=== PATIENT | male | born 1955 | race Caucasian/White ===

== ENCOUNTER 2016-10-25 10:52 | Emergency (ER) | payer BC ==
[2016-10-25 11:22] VITALS: BP 116/63
--- NOTE | 2016-10-25 11:49 | UC ---
Hip/Pelvis Pain - HPI Summary HPI Summary: This is a 61 yo obese gentleman with DM and HTN who presents with c/o R hip pain for the last 2 d. Denies recent trauma or acute injury. He reports a remote R hip injury, but that was several years ago. The pain is in the lateral hip and occasionally radiates in to his groin. He has been working on weight loss and reports a recent 50# loss. Denies fever or back pain. No other associated complaints. - History Of Current Complaint Chief Complaint: UCLowerExtremity Stated Complaint: RIGHT HIP/GROIN PAIN - Allergies/Home Medications Allergies/Adverse Reactions: Allergies Allergy/AdvReac Type Severity Reaction Status Date / Time No Known Allergies Allergy Verified 10/25/16 11:09 Home Medications: Home Medications Cyclobenzaprine TAB* [Flexeril 10 MG TAB*] 10 mg PO ONCE PRN 10/25/16 [History Confirmed 10/25/16] Fluticasone NASAL SPRAY 50MCG* [Flonase NASAL SPRAY 50MCG*] 2 spray BOTH NARES DAILY PRN 10/25/16 [History Confirmed 10/25/16] PMH/Surg Hx/FS Hx/Imm Hx Endocrine History: Diabetes Cardiovascular History: Hypertension - Surgical History Surgical History: Yes Surgery Procedure, Year, and Place: MED DELIVERED VIA CATHETER TO BREAK UP CLOT. CYST REMOVED FROM BACK. sinus - Family History Known Family History: Positive: Other - arthritis, Alzheimer's in mother - Social History Alcohol Use: Rare Substance Use Type: None Smoking Status (MU): Never Smoked Tobacco Have You Smoked in the Last Year: No Household Exposure Type: Cigarettes - Immunization History Most Recent Influenza Vaccination: Not the Season Review of Systems Constitutional: Negative Skin: Negative Eyes: Negative ENT: Negative Respiratory: Negative Cardiovascular: Negative Gastrointestinal: Negative Genitourinary: Negative Motor: Decreased ROM Neurovascular: Negative Musculoskeletal: Arthralgia, Decreased ROM Neurological: Negative Psychological: Negative All Other Systems Reviewed And Are Negative: Yes Physical Exam Triage Information Reviewed: Yes Appearance: Well-Appearing Vital Signs: Initial Vital Signs Temp 98.1 F 10/25/16 11:12 Pulse 59 10/25/16 11:12 Resp 20 10/25/16 11:12 BP 116/63 10/25/16 11:12 Pulse Ox 100 10/25/16 11:12 Vital Signs Reviewed: Yes Neck: Positive: Supple, Nontender, No Lymphadenopathy Respiratory: Positive: Chest non-tender, Normal breath sounds. Negative: Crackles, Rhonchi, Wheezing Cardiovascular: Positive: RRR, No Murmur Abdomen Description: Positive: Nontender Musculoskeletal: Positive: Other: - TTP over R GT and some TTP over R ITB. Pain increased with external rotation and hip flexion Skin Exam: Normal Skin: Negative: rashes Hip Injury Course/Dx - Course Course Of Treatment: This is a 61 yo male with HTN, DM and obesity who presented with c/o R hip pain. Exam c/w R GT bursitis. Due to comorbities, do not recommend NSAIDs. Recommend APAP, ice and light stretching exercises. Also suggest f/u with his orthopedist to consider bursa steroid injection. - Differential Dx/Diagnosis Differential Diagnosis/HQI/PQRI: Arthritis, Bursitis, Fracture Provider Diagnoses: 1. R hip bursitis Discharge - Discharge Plan Condition: Stable Disposition: HOME Patient Education Materials: Hip Bursitis (ED) Referrals: Dick Ortez PA [Primary Care Provider] - If Needed Additional Instructions: Instructions: 1. Use tylenol and ice to control the pain 2. Start some light hip stretches 3. Follow up with your orthopedic doctor to consider injection in to the hip bursa, PT may also be necessary if the pain continues
== END 2016-10-25 11:48 | disposition home or self-care (01) ==
LOC: UCCORT 10:52
DX: M70.71 Other bursitis of hip, right hip (principal); Y93.9 Activity, unspecified; E11.9 Type 2 diabetes mellitus without complications; I10 Essential (primary) hypertension; Z77.22 Contact with and (suspected) exposure to environmental tobacco smoke (acute) (chronic)
CPT/HCPCS: 99212; G0463

== ENCOUNTER 2017-08-07 17:50 | Emergency (ER) | payer MEDICARE ==
--- OUTSIDE RECORDS SUMMARY | 2017-08-07 19:16 | XMS REPORT ---
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 Crewmember Unavailable José Manuel Ortez PA Primary Care Physician Unavailable Payers Type Date Identification Numbers Payment Provider Subscriber Commercial Effective: Policy Number: BS [employer] Clarence Salgado 2016 [id number] PayID: [id number] [address] [address] [place] [address] Health Maintenance Expires: Policy Number: Chavo Lopez SOPHIA [facility] (O) 03/05/2016 [id number] Naomi PayID: [id number] [address] [place] [address] Problems Date Description Provider Status Onset: 07/25/2011 Difficulty breathing Alison Choi PA Active Onset: 07/25/2011 Disturbance in sleep behavior Alison Choi PA Active Onset: 07/25/2011 Deviated nasal septum Alison Choi PA Active Family History Date Family Member(s) Problem(s) Comments General Diabetes Social History Type Date Description Comments Marital Status Single 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 every day Gabapentin 00/ Active Capsules 300mg 1 by mouth Unknown 0000 three times a day Glimepiride / Active Tablets 4mg Unknown 0000 Lisinopril 00/00/ Active Tablets 20mg 1 by mouth Unknown 0000 every day Metformin HCL 00/00/ Active Tablets ER 750mg 1 by mouth Unknown ER 0000 24HR every day Simvastatin 0000/ Active Tablets 10mg 1 by mouth Unknown 0000 every day Xarelto 0000/ Active Tablets 20mg 1 by mouth Unknown 0000 every day Percocet 03/24/ Hx Tablets 5-325mg 20tabs 1-2 by Jean Paul, 2017 - mouth four Chet, 06/28/ times a M.D. 2016 day as needed for pain Amoxicillin 02/15/ Hx Tablets 875mg 20tabs twice a Jean Paul, 2015 - day 10 Chet, 03/30/ days M.D. 2016 Augmentin 01/11/ Hx Tablets 875-125mg 14tabs twice a Jean Paul, 2015 - day 1 week Chet, 02/14/ M.D. 2015 Prednisone 01/11/ Hx Tablets 5mg 5tabs 1 by mouth Jean Paul, 2015 - every day Chet, 02/14/ M.D. 2015 Metformin HCL / Hx Tablets 500mg 180tab 1 po bid Unknown 0000 - s 2015 Lisinopril/Hy / Hx Tablets 20-25mg Daily Unknown drochlorothia 0000 - zide 2015 Simvastatin / Hx Tablets 10mg Daily Unknown 0000 - 2015 Aspirin / Hx Tablets 81mg qday Unknown 0000 - 2015 Lyrica / Hx Capsules 1 by mouth Unknown 0000 - twice 12/15/ 2015 Vital Signs Date Vital Result Comment 07/24/2017 Weight 398.00 lb Height 71.5 inches 5'11.50" BMI (Body Mass Index) 54.7 kg/m2 BP Systolic 117 mmHg BP Diastolic 79 mmHg Heart Rate 58 /min O2 % BldC Oximetry 97 % Body Temperature 96.8 F Gap Score 3 Pain Level 0 06/29/2016 Weight 396.00 lb Height 71.5 inches 5'11.50" BMI (Body Mass Index) 54.5 kg/m2 BP Systolic 124 mmHg BP Diastolic 77 mmHg Heart Rate 61 /min O2 % BldC Oximetry 97 % Body Temperature 97.4 F Pain Level 0 03/31/2016 Weight 391.00 lb Height 71.5 inches 5'11.50" BMI (Body Mass Index) 53.8 kg/m2 BP Systolic 134 mmHg BP Diastolic 80 mmHg Heart Rate 81 /min O2 % BldC Oximetry 97 % Body Temperature 97.8 F 02/16/2016 Weight 400.00 lb Height 71.5 inches 5'11.50" BMI (Body Mass Index) 55.0 kg/m2 BP Systolic 136 mmHg BP Diastolic 84 mmHg Heart Rate 81 /min O2 % BldC Oximetry 97 % Body Temperature 98.1 F 01/12/2016 Weight 395.00 lb Height 71.5 inches 5'11.50" BMI (Body Mass Index) 54.3 kg/m2 Heart Rate 79 /min O2 % BldC Oximetry 97 % Body Temperature 96.4 F 12/17/2015 Weight 394.00 lb Height 71.5 inches 5'11.50" BMI (Body Mass Index) 54.2 kg/m2 BP Systolic 132 mmHg BP Diastolic 72 mmHg Heart Rate 59 /min O2 % BldC Oximetry 98 % Body Temperature 97.4 F Pain Level 0 09/16/2014 Weight 420.38 lb Height 71.5 inches 5'11.50" BMI (Body Mass Index) 57.8 kg/m2 BP Systolic 120 mmHg BP Diastolic 80 mmHg Heart Rate 70 /min O2 % BldC Oximetry 97 % Body Temperature 98.2 F Gap Score 0 08/30/2011 Weight 398.00 lb Height 71.5 inches 5'11.50" BMI (Body Mass Index) 54.7 kg/m2 BP Systolic 138 mmHg BP Diastolic 84 mmHg Heart Rate 75 /min O2 % BldC Oximetry 97 % Body Temperature 97.9 F 07/25/2011 Weight 390.00 lb Height 71.5 inches 5'11.50" BMI (Body Mass Index) 53.6 kg/m2 BP Systolic 144 mmHg BP Diastolic 90 mmHg Heart Rate 68 /min O2 % BldC Oximetry 99 % Body Temperature 98.2 F Results Test Date Test Result H/L Range Note Laboratory test finding 03/24/2016 Glucose,Bedside 157 mg/dL High 70-110 1 Laboratory test finding 02/23/2016 PTT-LA Mix 48.9 sec 0.0-40.6 2 DRVVT Mix 54.1 sec 0.0-44.0 2 DRVVT Confirm 1.2 ratio 0.8-1.2 2 Hexagonal Phase Phospholipid 7 sec 0-11 2 Lupus Anticoagulant Reflex 02/23/2016 PTT-LA 54.1 sec 0.0-40.6 2 DRVVT 73.9 sec High 0.0-44.0 2 Note: Comment: . 2, 3 Laboratory test 02/23/2016 Homocyst(E)Ine, 11.0 umol/L 0.0-15.0 2, 4 finding Plasma Anticardiolipin AB 02/23/2016 Anticardiolipin Igg 21 GPLU/mL High 0-14 2 , 5 Iga/Igg/Igm Anticardiolipin Igm, Quant < 9 MPLU/mL 0-12 2, 6 Anticardiolipin Iga < 9 APLU/mL 0-11 2, 7 CBS W/Automated Diff 02/23/2016 White Blood Count 6.7 K/uL 3.4-10.5 2 Red Blood Count 4.71 M/uL 4.20-5.80 2 Hemoglobin 14.5 gm/dL 12.8-17.0 2 Hematocrit 43.9 % 38.0-48.0 2 Mean Cell Volume 93.2 fl 80.0-96.0 2 Mean Corpuscular HGB 30.8 pg 27.0-33.0 2 Mean Corpuscular HGB Conc 33.0 g/dL 31.7-36.0 2 Platelet Count 206 K/uL 150-400 2 Red Cell Distri Width SD 45.7 fl 36-51 2 Red Cell Distri Width %CV 13.8 % 11.6-15.8 2 Mean Platelet Volume 10.7 fL High 6.6-10.6 2 Neut% 57.0 % 33.0-73.0 2 Lymph % 30.6 % 17.0-56.0 2 [place] % 9.7 % 0.0-10.0 2 Eo% 1.8 % 0.0-5.0 2 Bas% 0.9 % 0.1-1.0 2 Neut# 3.80 K/uL 1.8-7.0 2 Lymph # 2.04 K/uL 1.8-7.0 2 [place] # 0.65 K/uL 0.0-0.8 2 Eos # 0.12 K/uL 0.0-0.5 2 Baso # 0.06 K/uL Low 0.1-0.2 2 Protime 02/23/2016 Protime 20.9 seconds High 12.0-14.4 2 Inr 1.9 High 0.9-1.1 2, 8 Laboratory test finding 02/23/2016 Act Partial Thrombo 58.7 seconds High 23.4-35.0 2 Time Comprehensive Metabolic 02/23/2016 Glucose 151 mg/dL High 74-106 2 Panel BUN 13 mg/dL 7-18 2 Creatinine 1.2 mg/dL 0.6-1.3 2 Glom Filtration Rate, Estimate >60 mL/min >60 2 If >60 mL/min >60 2, 9 BUN/Creat 10.8 ratio 2 Sodium 139 mmol/L 136-145 2 Potassium 4.2 mmol/L 3.5-5.1 2 Chloride 105 mmol/L 98-107 2 Carbon Dioxide 29 mmol/L 21-32 2 Anion Gap 5 mEq/L Low 8-16 2 Calcium 8.9 mg/dL 8.5-10.1 2 Total Protein 7.5 g/dL 6.4-8.2 2 Albumin 3.4 g/dL 3.4-5.0 2 Globulin 4.1 g/dL 1.9-4.3 2 Alb/Glob 0.8 ratio 2 Bilirubin,Total 0.6 mg/dL 0.2-1.0 2 Sgot/Ast 43 U/L High 15-37 2 SGPT/Alt 56 U/L 12-78 2 Alkaline Phosphatase 52 U/L 45-117 2 LDL Cholesterol Profile 02/23/2016 Cholesterol 117 mg/dL <200 2, 10 Triglycerides 171 mg/dL High <150 2, 11 HDL Cholesterol 37 mg/dL Low >40 2, 12 LDL-Cholesterol 46 mg/dL < 100 2, 13 Glycohemoglobin A1c 02/23/2016 Glycohemoglobin (A1c) 6.9 % High 4.2-6.3 2 , 14 eAG 151 mg/dL 2 1 98402,79527,11801,60223,77630,16123 2 I26.99 E72.12 D68.62 3 Results are consistent with the presence of a lupus anticoagulant. NOTE: Only persistent lupus anticoagulants are thought to be of clinical significance. For this reason, repeat testing in 12 or more weeks after an initial positive result should be considered to confirm or refute the presence of a lupus anticoagulant, depending on clinical presentation. Performed at: [facility] [id number] [place], [place] [id number] Utility Sales And Service Manager: Romaine Limon MD, Phone: [phone] Performed at: [address] [id number] Utility Sales And Service Manager: Dayana Ahn MD, Phone: [phone] Negative: <15 Indeterminate: 15 - 20 Low-Med Positive: >20 - 80 High Positive: >80 6 Negative: <13 Indeterminate: 13 - 20 Low-Med Positive: >20 - 80 High Positive: >80 7 Negative: <12 Indeterminate: 12 - 20 Low-Med Positive: >20 - 80 High Positive: >80 Performed at: [address] [id number] Utility Sales And Service Manager: Dayana Ahn MD, Phone: [phone] THERAPEUTIC INR RANGE: 2.0 - 3.0 DVT, Pulmonary embolus, prophylaxis against venous thrombosis or systemic embolization in high risk patients. 2.5 - 3.5 Mechanical heart valves 9 Note: Persistent reduction for 3 months or more in an eGFR <60 mL/min/1.73 m2 defines CKD. Patients with eGFR values >/=60 mL/min/1.73 m2 may also have CKD if evidence of persistent proteinuria is present. The original MDRD equation for estimated GFR is not valid for patients less than 18 years of age. Additional information may be found at www.kdoqi.org. 10 Reference Guidelines*: Desirable: ........... < 200 mg/dL Borderline High: ..... 200-239 mg/dL High: ................ >=240 mg/dL * The National Cholesterol Education Program (NCEP) 11 Reference Guidelines*: Normal: ............. < 150 mg/dL Borderline High: .... 150-199 mg/dL High: ............... 200-499 mg/dL Very High: .......... > 500 mg/dL * Source: National Cholesterol Education Program (NCEP) 12 Reference Guidelines*: Low HDL: ..... < 40 mg/dL Normal: ..... 40-60 mg/dL Desirable: ... > 60 mg/dL *The National Cholesterol Education Program(NCEP) 13 Reference Guidelines*: Optimal:........... <100 mg/dL Near Optimal....... 100-129 mg/dL Borderline High.... 130-159 mg/dL High............... 160-189 mg/dL Very High.......... >=190 mg/dL * Source: National Cholesterol Education Program (NCEP) 14 Elevated levels of HbA1c suggest the need for more aggressive treatment of glycemia. The [place] [employer] recommends that a primary goal of therapy should be a HbA1c of <7% and that physicians should re-evaluate the treatment regimen in patients with HbA1c values consistently >8%. Procedures Date CPT Code Description Status 06/29/2016 28147 Nasal Endoscopy, Diag. Completed 03/24/2016 95059 Stereotactic Computer-Assisted, Cranial, Extradural Completed 03/24/2016 91899 Nasal/Sinus Endoscopy Surg/Sphen. Completed 03/24/2016 72982 Nasal/Sinus Endosc.W.Explor. Completed 03/24/2016 27087 Nasal/Sinus Endosc.W.Eth.Rem Tiss Completed 03/24/2016 03921 Nasal/Sinus Endosc.Surg.W.Ethmoid Completed 03/24/2016 97681 Septoplasty Completed 03/24/2016 47497 Exc.Turbinate/Partial Or Complete Completed 02/16/2016 12090 Nasal Endoscopy, Diag. Completed 12/17/2015 10667 Nasal Endoscopy, Diag. Completed 09/18/2011 38231 Sleep Stage 4 Or More Cpap Titra Completed 08/07/2011 63289 Sleep Staging 4Or More Para Completed 07/25/2011 35042 Fiberoptic Laryngoscopy,Diag. Completed Encounters Type Date Location Provider CPT E/M Dx Office Visit 06/29/2016 11:00a Main Office Chet Reaves M.D. 43160 J31.0 G47.33 E66.9 Office Visit 02/16/2016 3:15p Main Office Chet Reaves M.D. 01364 G47.33 J32.9 J34.2 J34.3 Office Visit 01/12/2016 10:15a Main Office Chet Reaves M.D. 98424 G47.33 J32.9 E66.9 Office Visit 12/17/2015 11:15a Main Office Chet Reaves M.D. 23799 G47.33 J34.2 J34.3 E66.9 Office Visit 09/16/2014 11:00a [place] [address] 327.23 Office Visit 11/14/2011 8:30a [place] [address] 327.23 Office Visit 08/30/2011 8:00a [place] [address] 327.23 Office Visit 07/25/2011 9:45a [place] [address] 786.09 780.50 470 Plan of Care No Information Available
--- OUTSIDE RECORDS SUMMARY | 2017-08-07 19:16 | XMS REPORT ---
:1955 External Reference #:[id number] Author Organization [facility] Address [address], [address] [place] [address] Phone [phone] Care Team Providers Name Role Phone Nam Saenz M.D. Care Team Information Corporate Coordinator Unavailable Katty Ortez PA Primary Care Physician Unavailable Payers Type Date Identification Numbers Payment Provider Subscriber Commercial Policy Number: [id number] [employer] Clarence Salgado PayID: [id number] [address] [address] [place] [address] Problems Date Description Provider Status Onset: 08/02/2017 Low back pain Sandra Camilo MD Active Onset: 08/02/2017 Lumbar spondylosis Sandra Camilo MD Active Onset: 05/23/2017 Trochanteric bursitis Nam Saenz M.D. Active Onset: 04/20/2017 Localized, primary osteoarthritis of the Nam Saenz M.D. Active pelvic region and thigh Onset: 04/20/2017 Arthralgia of the pelvic region and Nam Saenz M.D. 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 Active Onset: 10/24/2016 Localized, primary osteoarthritis Nam Saenz M.D. 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 Xarelto 05/26/ Active Tablets 20mg 30tab 1 by mouth Cinthia 2015 s every day Kamleshal, DO Simvastatin / Active Tablets 10mg 1 po qday Unknown 0000 Furosemide / Active Tablets 40mg 1 po qday Unknown 0000 Gabapentin / Active Capsules 300mg take 3 Unknown 0000 capsule by mouth three times a day Metformin HCL / Active Tablets ER 750mg 1 po qday Unknown ER 0000 24HR Glimepiride / Active Tablets 4mg 1 by mouth Unknown 0000 every day B Complex-B12 / Active Tablets 100mg 1 po qday Unknown 0000 Lisinopril / Active Tablets 20mg 1 po qday Unknown 0000 Lidoderm 10/31/ Hx Patches 5% 30uni 1 patch to Cinthia 2017 - ts low back, Kamleshbeatriz, 08/02/ apply for DO 2017 12 hour then remove Lovenox 03/17/ Hx Solution 100mg/ml 2box 100 mg sq Cinthia 2016 q12 DO Shara Folbee 12/15/ Hx Tablets 2.5-25-1m 30tab 1 by mouth Cinthia 2015 - g s every day Boufal, 2015 Folbee 25/ Hx Tablets 2.5-25-1m 30tab 1 by mouth Cinthia 2015 - g s every day Boufal, 2015 Naproxen 07/31/ Hx Tablets 500mg 60tab 1 po bid Lawrence Tilley 2013 - s with food Aquinox Pharmaceuticalsori, 05/26/ MZulma, 2016 FACS No Active 07/01/ Hx Unknown Medications 2013 - 2013 Meloxicam 07/01/ Hx Tablets 15mg 30tab 1 po q day Lawrence Tilley 2014 - s c food Margarita, 07/31/ Iraida, 2014 FACS Lisinopril/Hydr / Hx Tablets 20/25 mg 1 po qday Unknown ochlorothiazide - 2016 Aspirin 81 / Hx Tablets DR 81mg Unknown 0000 - 2015 Kombiglyze XR / Hx Tablets ER 5-500mg Unknown 0000 - 24HR 2015 Acetaminophen / Hx Tablets ER 650mg Unknown ER 0000 Anaprox DS / Hx Tablets 550mg Unknown 0000 - 2013 Actos / Hx Tablets 30mg Unknown 0000 - 2015 Fluticasone / Hx Suspension 50mcg/Act 2 sprays Unknown Propionate 0000 - intranasal 08/02/ prn 2017 Zyrtec Allergy / Hx Tablets 10mg 1 by mouth Unknown 0000 - every day 2015 Amoxicillin / Hx Tablets 875mg take 1 Unknown 0000 - tablet by 03/04/ mouth twice 2016 a day for 10 days Vital Signs Date Vital Result Comment 08/02/2017 BP Systolic Sitting Left Arm 131 mmHg BP Diastolic Sitting Left Arm 83 mmHg Body Temperature 97.4 F Heart Rate 61 /min Height 69.5 inches 5'9.50" Weight 395.00 lb BMI (Body Mass Index) 57.5 kg/m2 BSA (Body Surface Area) 2.77 m2 Phillips body weight in kilograms 74 06/29/2017 BP Systolic Sitting Right Arm 117 mmHg BP Diastolic Sitting Right Arm 73 mmHg Body Temperature 96.7 F Heart Rate 60 /min Respiratory Rate 16 /min Height 69.5 inches 5'9.50" Weight 392.12 lb BMI (Body Mass Index) 57.1 kg/m2 BSA (Body Surface Area) 2.76 m2 Phillips body weight in kilograms 74 O2 % BldC Oximetry 99 % Ra Pain Level 7 05/23/2017 BP Systolic 133 mmHg BP Diastolic 83 mmHg Body Temperature 96.7 F Heart Rate 60 /min Respiratory Rate 16 /min Height 69.5 inches 5'9.50" Weight 389.00 lb BMI (Body Mass Index) 56.6 kg/m2 BSA (Body Surface Area) 2.75 m2 Phillips body weight in kilograms 74 Pain Level 7 04/20/2017 BP Systolic Sitting Left Arm 128 mmHg BP Diastolic Sitting Left Arm 79 mmHg Heart Rate 65 /min Height 69.5 inches 5'9.50" Weight 389.00 lb BMI (Body Mass Index) 56.6 kg/m2 BSA (Body Surface Area) 2.75 m2 Phillips body weight in kilograms 74 03/15/2017 BP Systolic 131 mmHg BP Diastolic 78 mmHg Body Temperature 97.3 F Heart Rate 64 /min Weight 388.00 lb O2 % BldC Oximetry 98 % 10/31/2016 BP Systolic 135 mmHg BP Diastolic 80 mmHg Body Temperature 97.5 F Heart Rate 55 /min Weight 371.00 lb O2 % BldC Oximetry 99 % 10/20/2016 BP Systolic Sitting Right Arm 109 mmHg BP Diastolic Sitting Right Arm 73 mmHg Heart Rate 53 /min Height 69.5 inches 5'9.50" Weight 378.00 lb BMI (Body Mass Index) 55.0 kg/m2 BSA (Body Surface Area) 2.72 m2 Phillips body weight in kilograms 74 09/05/2016 BP Systolic 120 mmHg BP Diastolic 82 mmHg Body Temperature 98.6 F Heart Rate 72 /min Weight 371.00 lb O2 % BldC Oximetry 96 % 03/18/2016 BP Systolic 112 mmHg BP Diastolic 72 mmHg Body Temperature 97.8 F Heart Rate 64 /min Respiratory Rate 20 /min Weight 394.38 lb O2 % BldC Oximetry 95 % 03/04/2016 BP Systolic 119 mmHg BP Diastolic 74 mmHg Body Temperature 98.1 F Heart Rate 78 /min Respiratory Rate 20 /min Weight 395.50 lb O2 % BldC Oximetry 97 % 02/22/2016 BP Systolic 136 mmHg BP Diastolic 64 mmHg Body Temperature 97.7 F Heart Rate 78 /min Respiratory Rate 18 /min Weight 397.00 lb O2 % BldC Oximetry 96 % 12/16/2015 BP Systolic 123 mmHg BP Diastolic 78 mmHg Body Temperature 97.8 F Heart Rate 70 /min Respiratory Rate 20 /min Weight 392.50 lb O2 % BldC Oximetry 98 % 08/10/2015 BP Systolic 125 mmHg BP Diastolic 75 mmHg Body Temperature 98.0 F Heart Rate 75 /min Respiratory Rate 16 /min Weight 398.50 lb O2 % BldC Oximetry 97 % 06/09/2015 BP Systolic 129 mmHg BP Diastolic 76 mmHg Body Temperature 98.0 F Heart Rate 80 /min Respiratory Rate 22 /min Weight 414.00 lb O2 % BldC Oximetry 97 % 05/27/2015 BP Systolic 128 mmHg BP Diastolic 75 mmHg Body Temperature 97.4 F Heart Rate 79 /min Height 71 inches 5'11" Weight 419.00 lb BMI (Body Mass Index) 58.4 kg/m2 BSA (Body Surface Area) 2.89 m2 O2 % BldC Oximetry 98 % 07/01/2013 BP Systolic Sitting Right Arm 124 mmHg BP Diastolic Sitting Right Arm 86 mmHg Height 71 inches 5'11" Weight 395.00 lb BMI (Body Mass Index) 55.1 kg/m2 BSA (Body Surface Area) 2.82 m2 Results Test Date Test Result H/L Range Note CBS W/Automated Diff 03/08/2017 White Blood Count 7.9 K/uL 3.4-10.5 1 Red Blood Count 5.20 M/uL 4.20-5.80 1 Hemoglobin 15.7 gm/dL 12.8-17.0 1 Hematocrit 48.6 % High 38.0-48.0 1 Mean Cell Volume 93.5 fl 80.0-96.0 1 Mean Corpuscular HGB 30.2 pg 27.0-33.0 1 Mean Corpuscular HGB Conc 32.3 g/dL 31.7-36.0 1 Platelet Count 209 K/uL 155-360 1 Red Cell Distri Width SD 47.2 fl 36-51 1 Red Cell Distri Width %CV 14.1 % 11.6-15.8 1 Mean Platelet Volume 10.7 fL High 6.6-10.6 1 Neut% 54.1 % 33.0-73.0 1 Lymph % 34.1 % 20.0-42.0 1 Taliaferro % 9.5 % 0.0-10.0 1 Eo% 1.8 % 0.0-6.6 1 Bas% 0.5 % 0.0-1.1 1 Neut# 4.25 K/uL 1.8-7.0 1 Lymph # 2.68 K/uL 1.0-4.0 1 Taliaferro # 0.75 K/uL 0.0-0.8 1 Eos # 0.14 K/uL 0.0-0.5 1 Baso # 0.04 K/uL 0.0-0.1 1 Comprehensive Metabolic Panel 03/08/2017 Glucose 123 mg/dL High 74-106 1 BUN 18 mg/dL 7-18 1 Creatinine 1.3 mg/dL 0.6-1.3 1 Glom Filtration Rate, Estimate 60 mL/min >60 1 If >60 mL/min >60 1, 2 BUN/Creat 13.8 ratio 1 Sodium 142 mmol/L 136-145 1 Potassium 4.5 mmol/L 3.5-5.1 1 Chloride 105 mmol/L 98-107 1 Carbon Dioxide 30 mmol/L 21-32 1 Anion Gap 7 mEq/L Low 8-16 1 Calcium 9.1 mg/dL 8.5-10.1 1 Total Protein 7.9 g/dL 6.4-8.2 1 Albumin 3.7 g/dL 3.4-5.0 1 Globulin 4.2 g/dL 1.9-4.3 1 Alb/Glob 0.9 ratio 1 Bilirubin,Total 0.4 mg/dL 0.2-1.0 1 Sgot/Ast 23 U/L 15-37 1 SGPT/Alt 43 U/L 12-78 1 Alkaline Phosphatase 48 U/L 45-117 1 Homocyst(E)Ine, P/S 03/08/2017 Homocyst(e)ine, P/S 11.8 umol/L 0.0-15.0 1, 3 CBS W/Automated Diff 10/24/2016 White Blood Count 9.7 K/uL 3.4-10.5 4 Red Blood Count 4.86 M/uL 4.20-5.80 4 Hemoglobin 15.1 gm/dL 12.8-17.0 4 Hematocrit 45.2 % 38.0-48.0 4 Mean Cell Volume 93.0 fl 80.0-96.0 4 Mean Corpuscular HGB 31.1 pg 27.0-33.0 4 Mean Corpuscular HGB Conc 33.4 g/dL 31.7-36.0 4 Platelet Count 203 K/uL 150-400 4 Red Cell Distri Width SD 47.6 fl 36-51 4 Red Cell Distri Width %CV 14.5 % 11.6-15.8 4 Mean Platelet Volume 11.1 fL High 6.6-10.6 4 Neut% 50.2 % 33.0-73.0 4 Lymph % 38.5 % 20.0-42.0 4 Taliaferro % 9.9 % 0.0-10.0 4 Eo% 1.0 % 0.0-6.6 4 Bas% 0.4 % 0.0-1.1 4 Neut# 4.88 K/uL 1.8-7.0 4 Lymph # 3.74 K/uL 1.0-4.0 4 Taliaferro # 0.96 K/uL High 0.0-0.8 4 Eos # 0.10 K/uL 0.0-0.5 4 Baso # 0.04 K/uL 0.0-0.1 4 Comprehensive Metabolic Panel 10/24/2016 Glucose 119 mg/dL High 74-106 4 BUN 24 mg/dL High 7-18 4 Creatinine 1.4 mg/dL High 0.6-1.3 4 Glom Filtration Rate, Estimate 55 mL/min >60 4 If >60 mL/min >60 4, 5 BUN/Creat 17.1 ratio 4 Sodium 136 mmol/L 136-145 4 Potassium 4.5 mmol/L 3.5-5.1 4 Chloride 103 mmol/L 98-107 4 Carbon Dioxide 28 mmol/L 21-32 4 Anion Gap 5 mEq/L Low 8-16 4 Calcium 8.8 mg/dL 8.5-10.1 4 Total Protein 7.6 g/dL 6.4-8.2 4 Albumin 3.5 g/dL 3.4-5.0 4 Globulin 4.1 g/dL 1.9-4.3 4 Alb/Glob 0.9 ratio 4 Bilirubin,Total 0.5 mg/dL 0.2-1.0 4 Sgot/Ast 31 U/L 15-37 4 SGPT/Alt 39 U/L 12-78 4 Alkaline Phosphatase 47 U/L 45-117 4 Homocyst(E)Ine, P/S 10/24/2016 Homocyst(e)ine, P/S 14.0 umol/L 0.0-15.0 4, 6 CBS W/Automated Diff 07/21/2016 White Blood Count 6.1 K/uL 3.4-10.5 7 Red Blood Count 4.46 M/uL 4.20-5.80 7 Hemoglobin 14.1 gm/dL 12.8-17.0 7 Hematocrit 42.0 % 38.0-48.0 7 Mean Cell Volume 94.2 fl 80.0-96.0 7 Mean Corpuscular HGB 31.6 pg 27.0-33.0 7 Mean Corpuscular HGB Conc 33.6 g/dL 31.7-36.0 7 Platelet Count 190 K/uL 150-400 7 Red Cell Distri Width SD 44.9 fl 36-51 7 Red Cell Distri Width %CV 13.5 % 11.6-15.8 7 Mean Platelet Volume 10.8 fL High 6.6-10.6 7 Neut% 47.1 % 33.0-73.0 7 Lymph % 40.2 % 20.0-42.0 7 Taliaferro % 9.9 % 0.0-10.0 7 Eo% 2.1 % 0.0-6.6 7 Bas% 0.7 % 0.0-1.1 7 Neut# 2.89 K/uL 1.8-7.0 7 Lymph # 2.47 K/uL 1.0-4.0 7 Taliaferro # 0.61 K/uL 0.0-0.8 7 Eos # 0.13 K/uL 0.0-0.5 7 Baso # 0.04 K/uL 0.0-0.1 7 Anticoagulant Therapy? Unknown 7 Comprehensive Metabolic Panel 07/21/2016 Glucose 98 mg/dL 74-106 7 BUN 15 mg/dL 7-18 7 Creatinine 1.3 mg/dL 0.6-1.3 7 Glom Filtration Rate, Estimate 60 mL/min >60 7 If >60 mL/min >60 7, 8 BUN/Creat 11.5 ratio 7 Sodium 139 mmol/L 136-145 7 Potassium 4.2 mmol/L 3.5-5.1 7 Chloride 106 mmol/L 98-107 7 Carbon Dioxide 27 mmol/L 21-32 7 Anion Gap 6 mEq/L Low 8-16 7 Calcium 8.9 mg/dL 8.5-10.1 7 Total Protein 7.6 g/dL 6.4-8.2 7 Albumin 3.7 g/dL 3.4-5.0 7 Globulin 3.9 g/dL 1.9-4.3 7 Alb/Glob 0.9 ratio 7 Bilirubin,Total 0.6 mg/dL 0.2-1.0 7 Sgot/Ast 36 U/L 15-37 7 SGPT/Alt 49 U/L 12-78 7 Alkaline Phosphatase 50 U/L 45-117 7 Homocyst(E)Ine, P/S 07/21/2016 Homocyst(e)ine, P/S 15.1 umol/L High 0.0- 15.0 7, 9 Protime 07/21/2016 Protime 23.8 seconds High 12.0-14.4 7 Inr 2.2 High 0.9-1.1 7, 10 Anticoagulant Therapy? Unknown 7 LDL Cholesterol Profile 07/21/2016 Cholesterol 97 mg/dL <200 7, 11 Triglycerides 123 mg/dL <150 7, 12 HDL Cholesterol 36 mg/dL Low >40 7, 13 LDL-Cholesterol 36 mg/dL < 100 7, 14 Laboratory test finding 03/24/2016 Glucose,Bedside 157 mg/dL High 70-110 15 CBS W/Automated Diff 02/23/2016 White Blood Count 6.7 K/uL 3.4-10.5 16 Red Blood Count 4.71 M/uL 4.20-5.80 16 Hemoglobin 14.5 gm/dL 12.8-17.0 16 Hematocrit 43.9 % 38.0-48.0 16 Mean Cell Volume 93.2 fl 80.0-96.0 16 Mean Corpuscular HGB 30.8 pg 27.0-33.0 16 Mean Corpuscular HGB Conc 33.0 g/dL 31.7-36.0 16 Platelet Count 206 K/uL 150-400 16 Red Cell Distri Width SD 45.7 fl 36-51 16 Red Cell Distri Width %CV 13.8 % 11.6-15.8 16 Mean Platelet Volume 10.7 fL High 6.6-10.6 16 Neut% 57.0 % 33.0-73.0 16 Lymph % 30.6 % 17.0-56.0 16 Taliaferro % 9.7 % 0.0-10.0 16 Eo% 1.8 % 0.0-5.0 16 Bas% 0.9 % 0.1-1.0 16 Neut# 3.80 K/uL 1.8-7.0 16 Lymph # 2.04 K/uL 1.8-7.0 16 Taliaferro # 0.65 K/uL 0.0-0.8 16 Eos # 0.12 K/uL 0.0-0.5 16 Baso # 0.06 K/uL Low 0.1-0.2 16 Comprehensive Metabolic Panel 02/23/2016 Glucose 151 mg/dL High 74-106 16 BUN 13 mg/dL 7-18 16 Creatinine 1.2 mg/dL 0.6-1.3 16 Glom Filtration Rate, Estimate >60 mL/min >60 16 If >60 mL/min >60 16, 17 BUN/Creat 10.8 ratio 16 Sodium 139 mmol/L 136-145 16 Potassium 4.2 mmol/L 3.5-5.1 16 Chloride 105 mmol/L 98-107 16 Carbon Dioxide 29 mmol/L 21-32 16 Anion Gap 5 mEq/L Low 8-16 16 Calcium 8.9 mg/dL 8.5-10.1 16 Total Protein 7.5 g/dL 6.4-8.2 16 Albumin 3.4 g/dL 3.4-5.0 16 Globulin 4.1 g/dL 1.9-4.3 16 Alb/Glob 0.8 ratio 16 Bilirubin,Total 0.6 mg/dL 0.2-1.0 16 Sgot/Ast 43 U/L High 15-37 16 SGPT/Alt 56 U/L 12-78 16 Alkaline Phosphatase 52 U/L 45-117 16 Lupus Anticoagulant Reflex 02/23/2016 PTT-LA 54.1 sec 0.0-40.6 16 DRVVT 73.9 sec High 0.0-44.0 16 Note: Comment: . 16, 18 Anticardiolipin AB 02/23/2016 Anticardiolipin Igg 21 GPLU/mL High 0-14 16 , 19 Iga/Igg/Igm Anticardiolipin Igm, Quant < 9 MPLU/mL 0-12 16, 20 Anticardiolipin Iga < 9 APLU/mL 0-11 16, 21 Homocyst(E)Ine, P/S 02/23/2016 Homocyst(e)ine, P/S 11.0 umol/L 0.0-15.0 16, 22 Protime 02/23/2016 Protime 20.9 seconds High 12.0-14.4 16 Inr 1.9 High 0.9-1.1 16, 23 Laboratory test 02/23/2016 Act Partial Thrombo 58.7 seconds High 23.4- 35.0 16 finding Time LDL Cholesterol 02/23/2016 Cholesterol 117 mg/dL <200 16, 24 Profile Triglycerides 171 mg/dL High <150 16, 25 HDL Cholesterol 37 mg/dL Low >40 16, 26 LDL-Cholesterol 46 mg/dL < 100 16, 27 Glycohemoglobin A1c 02/23/2016 Glycohemoglobin (A1c) 6.9 % High 4.2-6.3 16, 28 eAG 151 mg/dL 16 Laboratory test finding 02/23/2016 PTT-LA Mix 48.9 sec 0.0-40.6 16 DRVVT Mix 54.1 sec 0.0-44.0 16 DRVVT Confirm 1.2 ratio 0.8-1.2 16 Hexagonal Phase Phospholipid 7 sec 0-11 16 Homocyst(E)Ine, Plasma/Serum 08/20/2015 Homocyst(e)ine, P/S 14.0 umol/L 0.0-15.0 29 Factor V Leiden Mutation 06/03/2015 Factor V Leiden See Note 30 . See Note 31 Methylenetetrahydrofolate Redu 06/03/2015 MTHFR,Dna Analysis See Note 32 Additional Information See Note 33 References See Note 34 Factor II Dna Analysis 06/03/2015 Factor II, Dna Analysis See Note 35 Comment See Note 36 Laboratory test finding 06/03/2015 PTT-LA Mix 68.9 sec High 0.0-50.0 DRVVT Mix 59.6 sec High 0.0-45.4 DRVVT Confirm 1.2 ratio 0.0-1.4 Hexagonal Phase Phospholipid 17.5 sec High 0.0-8.0 Anticardiolipin AB Iga/Igg/Igm 06/03/2015 Anticardiolipin Igg 26 GPLU/mL High 0-14 37 Anticardiolipin Igm, Quant 9 MPLU/mL 0-12 38 Anticardiolipin Iga < 9 APLU/mL 0-11 39 Lupus Anticoagulant Reflex 06/03/2015 PTT-LA 74.7 sec High 0.0-50.0 DRVVT 86.4 sec High 0.0-55.1 Note: Comment: . 40 Antithrombin III Panel 06/03/2015 Antithrombin III Activity 64 % Low 75- 135 41 Antithrombin III Antigen 80 % 75-130 Protein S Antigen 06/03/2015 Protein S,Total 129 % 58-150 Protein S,Free 133 % High 56-124 42 Hypercoag Panel ([facility]) 06/03/2015 Protein C,Antigen 83 % 70-140 Protein C,Functional 150 % 74-151 Protein S,Functional 98 % 60-145 Fibrinogen 383 mg/dL 188-480 Factor VIII Activity 60 % 50-150 43 1 I26.99 E72.12 D68.62 2 Note: Persistent reduction for 3 months or more in an eGFR <60 mL/min/1.73 m2 defines CKD. Patients with eGFR values >/=60 mL/min/1.73 m2 may also have CKD if evidence of persistent proteinuria is present. The original MDRD equation for estimated GFR is not valid for patients less than 18 years of age. Additional information may be found at www.[email or web address]. 3 Performed at: [address] [id number] Word Processing Machine Operator: Dayana Ahn MD, Phone: [phone] I26.99 E7212 D68.62 5 Note: Persistent reduction for 3 months or more in an eGFR <60 mL/min/1.73 m2 defines CKD. Patients with eGFR values >/=60 mL/min/1.73 m2 may also have CKD if evidence of persistent proteinuria is present. The original MDRD equation for estimated GFR is not valid for patients less than 18 years of age. Additional information may be found at www.[email or web address]. 6 Performed at: [facility] [address] [id number] Word Processing Machine Operator: Dayana Ahn MD, Phone: [phone] I26.99 E72.12 D68.62 8 Note: Persistent reduction for 3 months or more in an eGFR <60 mL/min/1.73 m2 defines CKD. Patients with eGFR values >/=60 mL/min/1.73 m2 may also have CKD if evidence of persistent proteinuria is present. The original MDRD equation for estimated GFR is not valid for patients less than 18 years of age. Additional information may be found at [email or web address]. 9 Performed at: [address] [id number] Word Processing Machine Operator: Dayana Ahn MD, Phone: [phone] 10 THERAPEUTIC INR RANGE: 2.0 - 3.0 DVT, Pulmonary embolus, prophylaxis against venous thrombosis or systemic embolization in high risk patients. 2.5 - 3.5 Mechanical heart valves 11 Reference Guidelines*: Desirable: ........... < 200 mg/dL Borderline High: ..... 200-239 mg/dL High: ................ >=240 mg/dL * The National Cholesterol Education Program (NCEP) 12 Reference Guidelines*: Normal: ............. < 150 mg/dL Borderline High: .... 150-199 mg/dL High: ............... 200-499 mg/dL Very High: .......... > 500 mg/dL * Source: National Cholesterol Education Program (NCEP) 13 Reference Guidelines*: Low HDL: ..... < 40 mg/dL Normal: ..... 40-60 mg/dL Desirable: ... > 60 mg/dL *The National Cholesterol Education Program(NCEP) 14 Reference Guidelines*: Optimal:........... <100 mg/dL Near Optimal....... 100-129 mg/dL Borderline High.... 130-159 mg/dL High............... 160-189 mg/dL Very High.......... >=190 mg/dL * Source: National Cholesterol Education Program (NCEP) 15 [id number],[id number] 16 I26.99 E72.12 D68.62 17 Note: Persistent reduction for 3 months or more in an eGFR <60 mL/min/1.73 m2 defines CKD. Patients with eGFR values >/=60 mL/min/1.73 m2 may also have CKD if evidence of persistent proteinuria is present. The original MDRD equation for estimated GFR is not valid for patients less than 18 years of age. Additional information may be found at www.[email or web address]. 18 Results are consistent with the presence of a lupus anticoagulant. NOTE: Only persistent lupus anticoagulants are thought to be of clinical significance. For this reason, repeat testing in 12 or more weeks after an initial positive result should be considered to confirm or refute the presence of a lupus anticoagulant, depending on clinical presentation. Performed at: [address] [id number] Word Processing Machine Operator: Romaine Limon MD, Phone: [phone] Negative: <15 Indeterminate: 15 - 20 Low-Med Positive: >20 - 80 High Positive: >80 20 Negative: <13 Indeterminate: 13 - 20 Low-Med Positive: >20 - 80 High Positive: >80 21 Negative: <12 Indeterminate: 12 - 20 Low-Med Positive: >20 - 80 High Positive: >80 Performed at: [address] [id number] Word Processing Machine Operator: Dayana Ahn MD, Phone: [phone] 22 Performed at: [address] [id number] Word Processing Machine Operator: Dayana Ahn MD, Phone: [phone] 23 THERAPEUTIC INR RANGE: 2.0 - 3.0 DVT, Pulmonary embolus, prophylaxis against venous thrombosis or systemic embolization in high risk patients. 2.5 - 3.5 Mechanical heart valves 24 Reference Guidelines*: Desirable: ........... < 200 mg/dL Borderline High: ..... 200-239 mg/dL High: ................ >=240 mg/dL * The National Cholesterol Education Program (NCEP) 25 Reference Guidelines*: Normal: ............. < 150 mg/dL Borderline High: .... 150-199 mg/dL High: ............... 200-499 mg/dL Very High: .......... > 500 mg/dL * Source: National Cholesterol Education Program (NCEP) 26 Reference Guidelines*: Low HDL: ..... < 40 mg/dL Normal: ..... 40-60 mg/dL Desirable: ... > 60 mg/dL *The National Cholesterol Education Program(NCEP) 27 Reference Guidelines*: Optimal:........... <100 mg/dL Near Optimal....... 100-129 mg/dL Borderline High.... 130-159 mg/dL High............... 160-189 mg/dL Very High.......... >=190 mg/dL * Source: National Cholesterol Education Program (NCEP) 28 Elevated levels of HbA1c suggest the need for more aggressive treatment of glycemia. The [place] [employer] recommends that a primary goal of therapy should be a HbA1c of <7% and that physicians should re-evaluate the treatment regimen in patients with HbA1c values consistently >8%. 29 Performed at: - [facility] [address] [id number] Word Processing Machine Operator: Dayana Ahn MD, Phone: [phone] Result: Negative (no mutation found) Factor V Leiden is a specific mutation ([id number]) in the factor V gene that is associated with an increased risk of venous thrombosis. Factor V Leiden is more resistant to inactivation by activated protein C. As a result, factor V persists in the circulation leading to a mild hyper- coagulable state. The Leiden mutation accounts for 90% - 95% of APC resistance. Factor V Leiden has been reported in patients with deep vein thrombosis, pulmonary embolus, central retinal vein occlusion, cerebral sinus thrombosis and hepatic vein thrombosis. Other risk factors to be considered in the workup for venous thrombosis include the [id number] mutation in the factor II (prothrombin) gene, protein S and C deficiency, and antithrombin deficiencies. Anticardiolipin antibody and lupus anticoagulant analysis may be appropriate for certain patients, as well as homocysteine levels. Contact your local [facility] for information on how to order additional testing if desired. 31 Genetic counselors are available for health care providers to discuss results at [phone] Methodology: DNA analysis of the Factor V gene was performed by allele- specific PCR. The diagnostic sensitivity and specificity is >99% for both. Molecular-based testing is highly accurate, but as in any laboratory test, diagnostic errors may occur. All test results must be combined with clinical information for the most accurate interpretation. References: Ashlyn Whalen (1995). Clin Lab Med 16:169-186. Camryn Mireles, PhD Danna Dickinson, PhD Christie Monique, PhD Kendra Martínez, PhD Sammi Garzon, PhD Oly Khan, PhD Performed at: [facility] [address] [place], [place] [id number] Word Processing Machine Operator: Edin Patel MD, Phone: [phone] Result: [id number] Single mutation ([id number]) identified Interpretation: This individual is heterozygous for the MTHFR X5160F variant(one copy). The MTHFR C677T variant was not identified. This combination of results is not associated with an increased risk of hyperhomocysteinemia, venous thrombosis, coronary artery disease, or recurrent loss. However, hyperhomocysteinemia may also occur due to mutations in enzymes other than MTHFR that are involved in homocysteine metabolism, or arise due to acquired factors. In the evaluation of vascular and obstetric risk, consider measuring fasting homocysteine. Other risk factors may be detected through systematic clinical laboratory analysis. 33 Genetic counselors are available to discuss these results with health care providers at [phone] [place]. Methylenetetrahydrofolate reductase (MTHFR) is a mo enzyme in the folate pathway and is responsible for the metabolism of homocysteine. There are two common variants in the MTHFR gene, c.655C>T (p.Ybn780Dor), referred to as C677T, and c.1286A>C (p.Koo153Ozu), referred to as X8043F. Individuals homozygous for C677T (two copies of the variant), have decreased activity of the MTHFR enzyme and a predisposition to hyperhomocysteinemia, particularly when deficient in folate. Hyperhomocysteinemia is a risk factor for venous thrombosis and coronary artery disease and is associated with an increased risk of open neural tube defects. The C677T variant does not independently increase risk of these conditions in the absence of hyperhomocysteinemia. The T8926J variant is not associated with elevated homocysteine levels unless a C677T variant is also present; however, the clinical significance of heterozygosity for both C677T and V0227T is controversial. Population data suggest that these two variants are not present on the same chromosome, but rare exceptions have been reported of triple variant MTHFR genotypes (ie. homozygous for one variant and heterozygous for the other). Homozygosity for C677T has an estimated frequency of 10% to 15% in Caucasians and 25% in Hispanics. Additional information: Dietary folic acid, B6 and B12 supplementation has been suggested to lower homocysteine levels in some people. Folic acid supplementation has been shown to reduce the occurrence of neural tube defects. Methodology: DNA analysis of the MTHFR gene was performed by PCR amplification followed by restriction analysis. The diagnostic sensitivity is >99% for both. Molecular-based testing is highly accurate, but as in any laboratory test, rare diagnostic errors may occur. All test results must be combined with clinical information for the most accurate interpretation. 34 Miguelito LD, Farhat Q. Am J Epidemiol 2000; 151(9):862-877. Galo MM, Adarsh JA. Arch Pathol Lab Med 2007; 131(6):872-884. Frosst P et al. Mariela Alejandra 1995; 10(1):111- 113. Hickey SE et al. Alejandra Med 2013; 15(2):153-156. Richmond C et al. Obstet Gynecol 2011; 118(3):730-740. Agusto B et al. Eur J Epidemiol 2013; 28(8):621-647. Camryn Mireles, PhD Danna Dickinson, PhD Christie Monique, PhD Kendra Martínez, MS, PhD Sammi Garzon, PhD Oly Khan, PhD Performed at: [facility] [id number] [place], [place] [id number] Word Processing Machine Operator: Edin Patel MD, Phone: [phone] NEGATIVE, No mutation identified. Comment: A point mutation ([id number]) in the factor II (prothrombin) gene is the second most common cause of inherited thrombophilia. The incidence of this mutation in the [place] population is about 2% and in the population it is approximately 0.5%. This mutation is rare in the and population. Being heterozygous for a prothrombin mutation increases the risk for developing venous thrombosis about 2 to 3 times above the general population risk. Being homozygous for the prothrombin gene mutation increases the relative risk for venous thrombosis further, although it is not yet known how much further the risk is increased. In women heterozygous for the prothrombin gene mutation, the use of estrogen containing oral contraceptives increases the relative risk of venous thrombosis about 16 times and the risk of developing cerebral thrombosis is also significantly increased. In the prothrombin gene mutation increases risk for venous thrombosis and may increase risk for stillbirth, placental abruption, pre-eclampsia and growth restriction. If the patient possesses two or more congenital or acquired thrombophilic risk factors, the risk for thrombosis may rise to more than the sum of the risk ratios for the individual mutations. This assay detects only the prothrombin [id number] mutation and does not measure genetic abnormalities elsewhere in the genome. Other thrombotic risk factors may be pursued through systematic clinical laboratory analysis. These factors include the R506Q ([place]) mutation in the Factor V gene, plasma homocysteine levels, as well as testing for deficiencies of antithrombin III, protein C and protein S. 36 Genetic Counselors are available for health care providers to discuss results at [phone] [place] ([phone]). Methodology: DNA analysis of the Factor II gene was performed by PCR amplification followed by restriction analysis. The diagnostic sensitivity is >99% for both. All the tests must be combined with clinical information for the most accurate interpretation. Molecular-based testing is highly accurate, but as in any laboratory test, diagnostic errors may occur. Poort SR, et al. Blood. 1996; 88:4305-7584. Eleuterio EA. Circulation. 2004; 110:e15-e18. Sonal I, et al. Arterioscler Thromb Vasc Biol. 1999; 19:700-703. Camryn Mireles, PhD Danna Dickinson, PhD Christie Monique, PhD Kendra Martínez, PhD Sammi Garzon, PhD Oly Khan, PhD Performed at: [facility] [address] [place], [place] [id number] Word Processing Machine Operator: Edin Patel MD, Phone: [phone] Negative: <15 Indeterminate: 15 - 20 Low-Med Positive: >20 - 80 High Positive: >80 38 Negative: <13 Indeterminate: 13 - 20 Low-Med Positive: >20 - 80 High Positive: >80 39 Negative: <12 Indeterminate: 12 - 20 Low-Med Positive: >20 - 80 High Positive: >80 Performed at: [address] [id number] Word Processing Machine Operator: Dayana Ahn MD, Phone: [phone] Results are consistent with the presence of a lupus anticoagulant. NOTE: Only persistent lupus anticoagulants are thought to be of clinical significance. For this reason, repeat testing in 12 or more weeks after an initial positive result should be considered to confirm or refute the presence of a lupus anticoagulant, depending on clinical presentation. 41 A deficiency of antithrombin (AT), either congenital or acquired, increases the risk of thromboembolism. Congenital deficiencies of AT are very rare; acquired AT deficiency is much more common. Heparin therapy will lower AT levels. Levels are diminished in patients with disseminated intravascular coagulation (DIC) or sepsis and can be transiently diminished after an acute thrombotic event or AT deficiency can occur due to diminished synthesis in patients with malnutrition and severe liver disease and urinary loss in nephrotic syndrome. Inflammatory bowel disease and drug therapy with L-asparaginse or fluorouracil can also produce diminished AT levels. It has been suggested that repeat blood sampling and testing after ruling out acquired causes of deficiency should be performed before the patient is diagnosed with congenital AT deficiency. 42 Performed at: [address] [id number] Word Processing Machine Operator: Romaine Limon MD, Phone: [phone] Performed at: [address] [id number] Word Processing Machine Operator: Romaine Limon MD, Phone: [phone] Procedures Date CPT Code Description Status 06/29/2017 91909 Radiology, L-S Spine Complete Completed 12/06/2016 45480 Radiology, Ankle Complete Completed 10/24/2016 Asp./Injection major joint Completed 10/24/2016 Asp./Injection major joint Completed 10/20/2016 98088 Radiology, Both Knees Standing Completed 10/20/2016 Asp./Injection major joint Completed 10/20/2016 Asp./Injection major joint Completed 10/30/2014 18515 Echocardiogram Complete Completed Encounters Type Date Location Provider CPT E/M Dx Office Visit 08/02/2017 8:30a Physical Medicine & [place] [address] E66.01 Infectious Disease M47.896 M54.5 Office Visit 06/29/2017 8:45a Orthopaedic Office Nam Saenz M.D. 26488 M54.5 Office Visit 05/23/2017 8:30a Orthopaedic Office Nam Saenz M.D. 15105 M70.61 Office Visit 04/20/2017 8:30a Orthopaedic Office Nam Saenz M.D. 03206 M25.551 M16.11 Office Visit 03/15/2017 8:30a [place] [address] I26.99 E72.12 Office Visit 01/17/2017 9:15a Orthopaedic Office Nam Saenz M.D. 78376 M17.0 M25.572 Office Visit 12/06/2016 9:15a Orthopaedic Office Nam Saenz M.D. 40728 M25.572 M17.0 Office Visit 10/31/2016 8:00a [place] [address] I26.99 E72.12 E66.01 M19.90 Office Visit 10/20/2016 10:00a Orthopaedic Office Nam Saenz M.D. 13087 M17.0 M25.561 M25.562 Office Visit 09/05/2016 2:00p [place] [address] I26.99 E72.12 Office Visit 03/18/2016 11:45a [place] [address] I26.99 E72.12 Office Visit 03/04/2016 3:00p [place] [address] I26.99 E66.01 E72.12 Office Visit 02/22/2016 3:00p [place] [address] I26.99 E72.12 E66.01 Office Visit 12/16/2015 1:40p [place] [address] I26.99 E66.01 Office Visit 08/10/2015 2:00p [place] [address] I26.99 E66.01 Office Visit 06/09/2015 3:00p [place] [address] I26.99 E66.01 Office Visit 05/27/2015 11:00a [place] [address] I26.99 Office Visit 10/30/2014 3:57p [place] [address] I26.99 Office Visit 07/31/2013 9:45a Orthopaedic Office Rina Zuniga, [address] 719.47 RPA 715.17 Office Visit 07/01/2013 2:45p Orthopaedic Office Rina Zuniga, 44255 719.47 RPA 715.17 Plan of Care Future Appointment(s):09/21/2017 8:45 am - Nam Saenz M.D. at Orthopaedic Afqhio9409/04/2017 9:00 am - Oncology Nurse at Oncology Wqgdgg5209/12/2017 9:00 am - Cinthia Olmedo DO at Oncology Wguree6308/02/2017 - Sandra Camilo MDE66.01 Morbid (severe) obesity due to excess caloriesComments:Encouraged weight loss as a way to reduce the stress on his skeleton, control his diabetes and improve his overall level of function.M47.896 Other spondylosis, lumbar xefyziZ77.5 Low back painComments:1. Recommended aqua therapy at the [facility].2. Recommended facet and/or lumbar epidural steroid injections. He does not want to travel out of town for injections.Follow up:As needed.
--- OUTSIDE RECORDS SUMMARY | 2017-08-07 19:16 | XMS REPORT ---
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 José Manuel Ortez PA Primary Care Physician Unavailable Payers Type Date Identification Numbers Payment Provider Subscriber Commercial Effective: Policy Number: BS [employer] Clarence Salgado 2016 [id number] PayID: [id number] [address] [address] [place] [address] Health Maintenance Expires: Policy Number: Chavo Lopez SOPHIA Rivera [facility] (O) 03/05/2016 [id number] Naomi PayID: [id number] [address] [place] [address] Problems Date Description Provider Status Onset: 07/25/2011 Difficulty breathing Alison Choi PA Active Onset: 07/25/2011 Disturbance in sleep behavior Alison Choi PA Active Onset: 07/25/2011 Deviated nasal septum Alison Choi PA Active Family History Date Family Member(s) Problem(s) Comments General Diabetes Social History Type Date Description Comments Marital Status Single 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 NOTE: Only persistent lupus anticoagulants are thought to be of clinical significance. For this reason, repeat testing in 12 or more weeks after an initial positive result should be considered to confirm or refute the presence of a lupus anticoagulant, depending on clinical presentation. Performed at: [facility] [id number] [place], [place] [id number] Gas Refrigerator Servicer: Romaine Limon MD, Phone: [phone] Performed at: [address] [id number] Gas Refrigerator Servicer: Dayana Ahn MD, Phone: [phone] Negative: <15 Indeterminate: 15 - 20 Low-Med Positive: >20 - 80 High Positive: >80 6 Negative: <13 Indeterminate: 13 - 20 Low-Med Positive: >20 - 80 High Positive: >80 7 Negative: <12 Indeterminate: 12 - 20 Low-Med Positive: >20 - 80 High Positive: >80 Performed at: [address] [id number] Gas Refrigerator Servicer: Dayana Ahn MD, Phone: [phone] THERAPEUTIC INR RANGE: 2.0 - 3.0 [...] for more aggressive treatment of glycemia. The [place] [employer] recommends that a primary goal of therapy should be a HbA1c of <7% and that physicians should re-evaluate the treatment regimen in patients with HbA1c values consistently >8%. Procedures Date CPT Code Description Status 06/29/2016 97048 Nasal Endoscopy, Diag. Completed 03/24/2016 25121 Stereotactic Computer-Assisted, Cranial, Extradural Completed 03/24/2016 06575 Nasal/Sinus Endoscopy Surg/Sphen. Completed 03/24/2016 97399 Nasal/Sinus Endosc.W.Explor. Completed 03/24/2016 26717 Nasal/Sinus Endosc.W.Eth.Rem Tiss Completed 03/24/2016 25053 Nasal/Sinus Endosc.Surg.W.Ethmoid Completed 03/24/2016 88676 Septoplasty Completed 03/24/2016 74906 Exc.Turbinate/Partial Or Complete Completed 02/16/2016 79694 Nasal Endoscopy, Diag. Completed 12/17/2015 89763 Nasal Endoscopy, Diag. Completed 09/18/2011 60144 Sleep Stage 4 Or More Cpap Titra Completed 08/07/2011 93163 Sleep Staging 4Or More Para Completed 07/25/2011 01688 Fiberoptic Laryngoscopy,Diag. Completed Encounters Type Date Location Provider CPT E/M Dx Office Visit 07/24/2017 9:15a [place] [address] G47.33 Office Visit 06/29/2016 11:00a Main Office Chet Reaves M.D. 03162 J31.0 G47.33 E66.9 Office Visit 02/16/2016 3:15p Main Office Chet Raeves M.D. 79462 G47.33 J32.9 J34.2 J34.3 Office Visit 01/12/2016 10:15a Main Office Chet Reaves M.D. 22526 G47.33 J32.9 E66.9 Office Visit 12/17/2015 11:15a Main Office Chet Reaves M.D. 87071 G47.33 J34.2 J34.3 E66.9 Office Visit 09/16/2014 11:00a [place] [address] 327.23 Office Visit 11/14/2011 8:30a [place] [address] 327.23 Office Visit 08/30/2011 8:00a [place] [address] 327.23 Office Visit 07/25/2011 9:45a [place] [address] 786.09 780.50 470 Plan of Care No Information Available
[2017-08-07 19:30] VITALS: BP 131/72
--- NOTE | 2017-08-07 20:10 | ED ---
Lower Extremity - HPI Summary HPI Summary: 62 yr old with small blisters on left anterior lower leg. 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 No fever or chills. Doesnt feel ill. He has mild redness. No change in his leg diameter. No calf or thigh pain. No swelling. - History of Current Complaint Chief Complaint: Tash Stated Complaint: SKIN COMPLAINT - LEFT LEG Time Seen by Provider: 08/07/17 19:48 Pain Intensity: 4 - Allergies/Home Medications Allergies/Adverse Reactions: Allergies Allergy/AdvReac Type Severity Reaction Status Date / Time No Known Allergies Allergy Verified 08/07/17 19:18 Home Medications: Home Medications Nabumetone TAB* [Relafen TAB*] 500 mg BID PRN 08/07/17 [History Confirmed ] PMH/Surg Hx/FS Hx/Imm Hx Endocrine/Hematology History: Reports: Hx Diabetes Cardiovascular History: Reports: Hx Hypertension Respiratory History: Reports: Hx Pulmonary Embolism - Surgical History Surgery Procedure, Year, and Place: MED DELIVERED VIA CATHETER TO BREAK UP CLOT. CYST REMOVED FROM BACK. sinus Infectious Disease History: No Infectious Disease History: Denies: Hx Clostridium Difficile, Hx Hepatitis, Hx Human Immunodeficiency Virus (HIV), Hx of Known/Suspected MRSA, Hx Shingles, Hx Tuberculosis, Hx Known/ Suspected VRE, Hx Known/Suspected VRSA, History Other Infectious Disease, Traveled Outside the [place] in Last 30 Days - Family History Known Family History: Positive: Other - arthritis, Alzheimer's in mother - Social History Alcohol Use: Rare Substance Use Type: Reports: None Smoking Status (MU): Never Smoked Tobacco Have You Smoked in the Last Year: No Review of Systems Positive: Other - red and blister to left anterior lower leg All Other Systems Reviewed And Are Negative: Yes Physical Exam Triage Information Reviewed: Yes Vital Signs On Initial Exam: Initial Vitals Temp Pulse Resp BP Pulse Ox 98.9 F 79 16 131/72 98 08/07/17 19:21 08/07/17 19:21 08/07/17 19:21 08/07/17 19:21 08/07/17 19:21 Vital Signs Reviewed: Yes Appearance: Positive: Obese Skin: Positive: Other - small blisters (2) on the left anterior lower leg with some slight erythema. Right anterior leg without erythema or blisters. blisters with clear fluid. Head/Face: Positive: Normal Head/Face Inspection Neck: Positive: Nontender Respiratory/Lung Sounds: Positive: Clear to Auscultation, Breath Sounds Present Cardiovascular: Positive: RRR. Negative: Murmur Abdomen Description: Positive: Other: - obese Musculoskeletal: Positive: Strength/ROM Intact, Other - chronic venous skin changes lower legs. No tenderness calfs. Neurological: Positive: Sensory/Motor Intact, Alert, Oriented to Person Place, Time, CN Intact II-III - [place] Coma Scale Best Eye Response: 4 - Spontaneous Best Motor Response: 6 - Obeys Commands Best Verbal Response: 5 - Oriented Coma Scale Total: 15 Diagnostics - Vital Signs Vital Signs Temp Pulse Resp BP Pulse Ox 08/07/17 19:21 98.9 F 79 16 131/72 98 - Laboratory Lab Statement: Any lab studies that have been ordered have been reviewed, and results considered in the medical decision making process. Lower Extremity Course/Dx - Course Course Of Treatment: 62 yr old with likely chronic venous insufficiency, and some slight cellulitis with small skin blisters left leg. Keflex and follow up with his PMD in two days at already scheduled appointment. - Diagnoses Provider Diagnoses: Cellulitis of left leg Discharge - Sign-Out/Discharge Documenting (check all that apply): Discharge/Admit/Transfer - Discharge Plan Condition: Good Disposition: HOME Prescriptions: Cephalexin CAP* [Keflex CAP*] 500 mg PO QID #40 cap Patient Education Materials: Cellulitis (ED) Referrals: Dick Ortez PA [Primary Care Provider] - 2 Days - Billing Disposition and Condition Condition: GOOD Disposition: Home
== END 2017-08-07 20:06 | disposition home or self-care (01) ==
LOC: UCCORT 17:50
DX: L03.116 Cellulitis of left lower limb (principal)
CPT/HCPCS: 99212; G0463

== ENCOUNTER 2018-02-20 08:41 | Emergency (ER) | payer MEDICARE ==
[2018-02-20 09:04] VITALS: BP 126/68
--- NOTE | 2018-02-20 09:11 | UC ---
Throat Pain/Nasal Artemio HPI - HPI Summary HPI Summary: sinus pain and pressure x 10 days + nasal congestion , pnd , dry cough no fever, no chills - History of Current Complaint Chief Complaint: UCGeneralIllness Stated Complaint: BI LAT EARS Time Seen by Provider: 02/20/18 09:03 Hx Obtained From: Patient Onset/Duration: Gradual Onset, Lasting Days - 10, Still Present Severity: Moderate Pain Intensity: 8 Cough: Nonproductive Associated Signs & Symptoms: Positive: Sinus Discomfort, Nasal Discharge. Negative: Dysphagia, Wheezing, Hoarseness, Fever, Vomiting, Rash - Allergies/Home Medications Allergies/Adverse Reactions: Allergies Allergy/AdvReac Type Severity Reaction Status Date / Time No Known Allergies Allergy Verified 02/20/18 09:02 PMH/Surg Hx/FS Hx/Imm Hx Endocrine History: Diabetes Cardiovascular History: Cardiac Disease, Hypertension - Surgical History Surgical History: Yes Surgery Procedure, Year, and Place: MED DELIVERED VIA CATHETER TO BREAK UP CLOT. CYST REMOVED FROM BACK. sinus - Family History Known Family History: Positive: Hypertension, Other - arthritis, Alzheimer's in mother - Social History Alcohol Use: Rare Substance Use Type: None Smoking Status (MU): Never Smoked Tobacco Have You Smoked in the Last Year: No Household Exposure Type: Cigarettes - Immunization History Most Recent Influenza Vaccination: Not the 2014/2015 Season Most Recent Tetanus Shot: UTD Review of Systems All Other Systems Reviewed And Are Negative: Yes Constitutional: Positive: Negative Skin: Positive: Negative Eyes: Positive: Negative ENT: Positive: Ear Ache, Sinus Congestion, Sinus Pain/Tenderness Respiratory: Positive: Cough Cardiovascular: Positive: Negative Is Patient Immunocompromised?: No Physical Exam Triage Information Reviewed: Yes Appearance: Well-Appearing, No Pain Distress, Obese Vital Signs: Initial Vital Signs Temp 97 F 02/20/18 09:01 Pulse 60 02/20/18 09:01 Resp 18 02/20/18 09:01 BP 126/68 02/20/18 09:01 Pulse Ox 98 02/20/18 09:01 Vital Signs Reviewed: Yes Eyes: Positive: Conjunctiva Clear ENT: Positive: Normal ENT inspection, Hearing grossly normal, Pharynx normal, Nasal congestion, Nasal drainage, TMs normal, Sinus tenderness. Negative: TM bulging, TM dull, TM red, Tonsillar swelling, Tonsillar exudate Neck: Positive: Supple, Nontender, No Lymphadenopathy Respiratory: Positive: Chest non-tender, Lungs clear, Normal breath sounds Cardiovascular: Positive: RRR, No Murmur, Pulses Normal Skin Exam: Normal Throat Pain/Nasal Course/Dx - Differential Dx/Diagnosis Provider Diagnosis: Sinusitis Discharge - Sign-Out/Discharge Documenting (check all that apply): Patient Departure All imaging exams completed and their final reports reviewed: No Studies - Discharge Plan Condition: Stable Disposition: HOME Prescriptions: Amoxicillin/Clavulanate TAB* [Augmentin TAB 875*] 875 mg PO BID #20 tab Patient Education Materials: Sinusitis (ED) Referrals: Dick Ortez PA [Primary Care Provider] - If Needed - Billing Disposition and Condition Condition: STABLE Disposition: Home
== END 2018-02-20 09:12 | disposition home or self-care (01) ==
LOC: UCCORT 08:41
DX: J32.9 Chronic sinusitis, unspecified (principal)
CPT/HCPCS: 99212; G0463